=== PATIENT | female | born 1975 | race Caucasian/White ===

== ENCOUNTER 2017-04-08 07:42 | Day surgery (SDC) | payer BC ==
[~2017-04-08 07:42] MED LIST: Bupivacaine 0.25%/EPINEPHrine 1:200,000 10 ML SDV ONE
[2017-04-08] MEDS ORDERED: Lactated Ringers 1,000 ML IV SCH (08:00)
[2017-04-08] MEDS ORDERED: ceFAZolin 2 GM in Premix Bag 1 BAG IV ONE (08:00)
[2017-04-08] MEDS ORDERED: Acetaminophen/HYDROcodone 325-5 MG Tab PO PRN (08:00)
[2017-04-08] MEDS ORDERED: Bupivacaine 0.25%/EPINEPHrine 1:200,000 10 ML SDV INJECT ONE (08:00)
[2017-04-08] MEDS ORDERED: fentaNYL 100 MCG/2 ML SDV ONE (08:01)
[2017-04-08] MEDS ORDERED: Propofol 200 MG/20 ML SDV ONE (08:01)
[2017-04-08] MEDS ORDERED: Midazolam 1 MG/ML 2 ML SDV ONE (08:01)
--- NOTE | 2017-04-08 08:02 | PCM.PREANE ---
Preanesthetic Assessment - Anesthesia/Transfusion/Family Hx Anesthesia History: Prior Anesthesia Without Reaction Family History of Anesthesia Reaction: No Transfusion History: No Prior Transfusion(s) Intubation History: Unknown - Review of Systems General: No Symptoms Pulmonary: No Symptoms Cardiovascular: No Symptoms Gastrointestinal: No symptoms Neurological: No Symptoms Other: Reports: None - Physical Assessment O2 Sat by Pulse Oximetry: 98 Respiratory Rate: 16 Vital Signs: Last Vital Signs Temp 36 C 04/08/17 07:57 Pulse 70 04/08/17 07:57 Resp 16 04/08/17 07:57 BP 125/69 04/08/17 07:57 Pulse Ox 98 04/08/17 07:57 Height: 1.68 m Weight: 92.079 kg ASA Class: 2 Mental Status: Alert & Oriented x3 Airway Class: Mallampati = 2 Dentition: Reports: Normal Dentition Thyro-Mental Finger Breadths: 3 Mouth Opening Finger Breadths: 3 ROM/Head Extension: Full Lungs: Clear to auscultation, Normal respiratory effort Cardiovascular: Regular Rate, Regular Rhythm - Allergies Allergies/Adverse Reactions: Allergies Allergy/AdvReac Type Severity Reaction Status Date / Time No Known Allergies Allergy Verified 04/06/17 12:49 - Blood Blood Available: No - Anesthesia Plan Pre-Op Medication Ordered: None Beta Salomón: Metoprolol Med Last Dose Date: 04/08/17 Med Last Dose Time: 06:30 - Acknowledgements Anesthesia Type Planned: General Anesthesia Pt an Appropriate Candidate for the Planned Anesthesia: Yes Alternatives and Risks of Anesthesia Discussed w Pt/Guardian: Yes Pt/Guardian Understands and Agrees with Anesthesia Plan: Yes PreAnesthesia Questionnaire Other HEENT History: wears glasses Cardiovascular History: Reports: Hypertension Respiratory History: Reports: None Gastrointestinal History: Reports: None Genitourinary History: Reports: None 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: Polycystic Ovaries Musculoskeletal History: Reports: None Neurological History: Reports: Other (See Below) Other Neuro History: hx of motion sickness Psychiatric History: Reports: None Endocrine/Metabolic History: Reports: Obesity/BMI 30+ Hematologic History: Reports: None Oncologic (Cancer) History: Reports: None Dermatologic History: Reports: None - Past Surgical History Head Surgeries/Procedures: Reports: None HEENT Surgical History: Reports: LASIK, Oral Surgery Cardiovascular Surgical History: Reports: None Respiratory Surgical History: Reports: None GI Surgical History: Reports: Cholecystectomy Female Surgical History: Reports: None Endocrine Surgical History: Reports: None Neurological Surgical History: Reports: None Musculoskeletal Surgical History: Reports: None Oncologic Surgical History: Reports: None Dermatological Surgical History: Reports: None - SUBSTANCE USE Smoking Status *Q: Current Every Day Smoker (1/2 ppd) Tobacco Use Within Last Twelve Months: Cigarettes Recreational Drug Use History: No - HOME MEDS Home Medications: Home Meds Calcium Carbonate/Vitamin D3 [Calcium 600 + Vit D 200] 2 tab PO DAILY 04/06/17 [ History] Desog-E.Estradiol/E.Estradiol [Viorele 28 Day Tablet] 1 tab PO ASDIRECTED [History] Fish Oil/[place]-3 Fatty Acids [Fish Oil 1,000 MG] 2 gm PO DAILY 04/06/17 [History ] Krill/Om-3/DHA/EPA/Phospho/Ast [[place]-3 Krill Oil 1,000 mg] 1 cap PO DAILY 04/06 [History] Metoprolol Succinate 50 mg PO DAILY 04/06/17 [History] Multivitamin [Daily Multiple Vitamin] 1 tab PO DAILY 04/06/17 [History] - CURRENT (IN HOUSE) MEDS Current Meds: Current Medications Hydrocodone Bitart/Acetaminophen (Harrison 325-5 Mg) 1 tab PO Q4H PRN PRN Reason: Pain Bupivacaine HCl/Epinephrine Bitart (Marcaine 0.25%/Epinephrine 1:200,000) 10 ml INJECT ONETIME ONE Stop: 04/08/17 08:01 Lactated Ringer's (Ringers, Lactated) 1,000 mls @ 125 mls/hr IV ASDIRECTED [facility] Cefazolin Sodium/Dextrose 2 gm (/ Premix) 50 mls @ 100 mls/hr IV ONETIME ONE Stop: 04/08/17 08:29 Discontinued Medications Bupivacaine HCl/Epinephrine Bitart (Marcaine 0.25%/Epinephrine 1:200,000) Confirm Administered Dose 20 ml .ROUTE .STK-MED ONE Stop: 04/08/17 07:28
[2017-04-08] MEDS ORDERED: Lidocaine 2% 5 ML SDV ONE (08:05)
[2017-04-08 09:55] VITALS: BP 111/62
--- NOTE | 2017-04-08 10:12 | PCM48HPAN ---
Post Anesthesia Note - EVALUATION WITHIN 48HRS OF ANESTHETIC Vital Signs in Normal Range: Yes Patient Participated in Evaluation: Yes Respiratory Function Stable: Yes Airway Patent: Yes Cardiovascular Function Stable: Yes Hydration Status Stable: Yes Pain Control Satisfactory: Yes Nausea and Vomiting Control Satisfactory: Yes Mental Status Recovered: Yes - COMMENTS/OBSERVATIONS Free Text/Narrative:: no ,anesthesia problems
--- NOTE | 2017-04-08 12:40 | PCM.OPNOTE ---
- General Post-Op/Procedure Note Date of Surgery/Procedure: 04/08/17 Operative Procedure(s): right carpal tunnel release and right small and thumb trigger finger releases Pre Op Diagnosis: right carpal tunnel. and trigger finger of right thumb and small finger Post-Op Diagnosis: Same Anesthesia Technique: Local, MAC Primary Surgeon: Akilah Cartagena Arabic Linguist: Kaleigh Jay Complications: None Condition: Good Free Text/Narrative:: Intake & Output 04/07/17 04/08/17 04/08/17 23:59 07:59 15:59 Intake Total 800 Balance 800
--- NOTE | 2017-04-08 19:15 | OR ---
SURGEON: STEFANIA JONAS MD DATE OF PROCEDURE: 04/08/2017 PREOPERATIVE DIAGNOSES: Right carpal tunnel syndrome, trigger finger of the right thumb, and trigger finger of the small finger. POSTOPERATIVE DIAGNOSES: Right carpal tunnel syndrome, trigger finger of the right thumb, and trigger finger of the small finger. PROCEDURE: 1. Right carpal tunnel release. 2. Right small finger trigger finger release. 3. Right thumb trigger finger release. SCIENTIST IMMUNOLOGY: JENNIFER Ardon ANESTHESIA: Local MAC. INDICATIONS: Ms. Byrne is a 42-year-old female seen today for carpal tunnel syndrome on the right. She also had trigger thumb and trigger small finger. Risks and benefits of release was used in addition a carpal tunnel release were discussed and she was in agreement to proceed. Risks were including, but not limited to, bleeding, infection, damage to underlying or overlying structures, possible need for future interventions and possible scarring. PROCEDURE IN DETAIL: After informed consent was obtained and placed on the chart, the patient was brought to the operating theater and laid in the supine position. After adequate local MAC anesthetic was obtained, the area was prepped and draped in normal fashion and a time-out was completed to confirm side and site. Attention was then paid to carpal tunnel release. The arm was exsanguinated and the tourniquet was inflated to 200 mmHg. After adequate prepping and time-out, attention was then paid to dissection over the transverse carpal ligament. A 15 blade was used to dissect through the skin and subcutaneous tissues and the ligament was breached. Dissection was carried distally and proximally using a Littler scissor until complete release of the ligament under direct visualization. Once this was completed, attention was then paid to the thumb trigger release, which was done using a 15 blade through the skin and a scissor dissection until direct visualization of the A1 balta. This was passed sharply with a knife under direct visualization and the tendon was passed through range of motion to ensure complete release. Once this was completed, attention was then paid to the right small finger and a 15 blade was used to dissect through the skin and a scissor dissection until direct visualization of the A1 balta. This was transected using a 15 blade under direct visualization. Once completely released, then the tendon put through range of motion, ensured not triggering. Attention was then paid to copious irrigation of all the incisions and they were closed using a 5-0 nylon stitches in a horizontal mattress fashion. She tolerated this well. The wounds were dressed with Xeroform, fluffs, and a Kerlix gauze dressing and a 2-inch MIKE wrap. FOLLOWUP INSTRUCTIONS: The patient will see us in clinic in 10 to 14 days for suture removal or sooner if any problems, questions, or concerns. She is given a prescription for Homer. HEGGTHE / MARIAELENAL /[id number]
== END 2017-04-08 09:55 | disposition home or self-care (01) ==
LOC: MW.SDS 07:42
PROVIDERS: ATTEND Plastic Surgery
DX: G56.01 Carpal tunnel syndrome, right upper limb (principal); M65.311 Trigger thumb, right thumb; M65.351 Trigger finger, right little finger; I10 Essential (primary) hypertension; E66.9 Obesity, unspecified; Z68.30 Body mass index [BMI] 30.0-30.9, adult; Z90.49 Acquired absence of other specified parts of digestive tract; Z98.890 Other specified postprocedural states; F17.210 Nicotine dependence, cigarettes, uncomplicated; Z79.899 Other long term (current) drug therapy
CPT/HCPCS: 26055; 64721; 81025; J2250; J3010; J7120; 01810; J2704

== ENCOUNTER 2021-05-26 06:45 | Day surgery (SDC) | payer BC ==
[~2021-05-26 06:45] MED LIST changes: -Bupivacaine 0.25%/EPINEPHrine 1:200,000 10 ML SDV ONE; +Lactated Ringers 1,000 ML IV SCH; +Sodium Chloride 0.9% 10 ML SDV IV PRN; +Sodium Chloride 0.9% 10 ML Syringe FLUSH PRN; +Sodium Chloride 0.9% 2.5 ML Syringe FLUSH PRN
[2021-05-26] MEDS ORDERED: Lidocaine 2% 5 ML SDV ONE (07:01)
[2021-05-26] MEDS ORDERED: Ondansetron 4 MG/2 ML SDV ONE (07:01)
[2021-05-26] MEDS ORDERED: propofoL 50 ML ONE (07:14)
--- NOTE | 2021-05-26 08:13 | PCM.PREANE ---
Preanesthetic Assessment - Anesthesia/Transfusion/Family Hx Anesthesia History: Prior Anesthesia Without Reaction Transfusion History: No Prior Transfusion(s) Intubation History: Unknown - Review of Systems General: No Symptoms Pulmonary: No Symptoms Cardiovascular: No Symptoms Gastrointestinal: No Symptoms Neurological: No Symptoms Other: Reports: None - Physical Assessment NPO Status Date: 05/26/21 NPO Status Time: 00:00 Vital Signs: Last Vital Signs Temp 97.5 F 05/26/21 07:26 Pulse 92 05/26/21 07:26 Resp 15 05/26/21 07:26 BP 121/70 05/26/21 07:26 Pulse Ox 97 05/26/21 07:26 Height: 5 ft 6 in Weight: 232 lb ASA Class: 2 Mental Status: Alert & Oriented x3 Airway Class: Mallampati = 2 Dentition: Reports: Normal Dentition ROM/Head Extension: Full Lungs: Clear to Auscultation, Normal Respiratory Effort Cardiovascular: Regular Rate, Regular Rhythm - Lab Values: Laboratory Last Values Urine HCG, Qual NEGATIVE (NEGATIVE) 05/26/21 07:08 - Allergies Allergies/Adverse Reactions: Allergies Allergy/AdvReac Type Severity Reaction Status Date / Time No Known Allergies Allergy Verified 05/21/21 12:42 - Acknowledgements Anesthesia Type Planned: General Anesthesia Pt an Appropriate Candidate for the Planned Anesthesia: Yes Alternatives and Risks of Anesthesia Discussed w Pt/Guardian: Yes Pt/Guardian Understands and Agrees with Anesthesia Plan: Yes PreAnesthesia Questionnaire HEENT History: Reports: Other (See Below) Other HEENT History: wears glasses Cardiovascular History: Reports: Hypertension Respiratory History: Reports: None Gastrointestinal History: Reports: GERD Genitourinary History: Reports: None 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 Musculoskeletal History: Reports: None Neurological History: Reports: None Other Neuro History: hx of motion sickness Psychiatric History: Reports: Anxiety Other Psychiatric History: has taken medication in the past for anxiety- not currently but has an upcoming appointment for this Endocrine/Metabolic History: Reports: Obesity/BMI 30+ Hematologic History: Reports: None Immunologic History: Reports: None Oncologic (Cancer) History: Reports: None Dermatologic History: Reports: None - Past Surgical History Head Surgeries/Procedures: Reports: None HEENT Surgical History: Reports: LASIK Cardiovascular Surgical History: Reports: None Respiratory Surgical History: Reports: None GI Surgical History: Reports: Cholecystectomy Female Surgical History: Reports: None Endocrine Surgical History: Reports: None Neurological Surgical History: Reports: None Musculoskeletal Surgical History: Reports: Carpal Tunnel, Other (See Below) Other Musculoskeletal Surgeries/Procedures:: trigger finger release- right hand Oncologic Surgical History: Reports: None Dermatological Surgical History: Reports: None - SUBSTANCE USE Tobacco Use Status *Q: Former Tobacco User Tobacco Use Within Last Twelve Months: No Recreational Drug Use History: No - HOME MEDS Home Medications: Home Meds Calcium Carbonate/Vitamin D3 [Calcium 600 + Vit D 200] 1 tab PO DAILY 04/06/17 [History] Krill/Om-3/DHA/EPA/Phospho/Ast [[place]-3 Krill Oil 1,000 mg] 1 cap PO DAILY 04/06/17 [History] Metoprolol Succinate 50 mg PO QAM 04/06/17 [History] Multivitamin [Daily Multiple Vitamin] 1 tab PO DAILY 04/06/17 [History] desog-e.estradioL/e.estradioL [Viorele 28 Day Tablet] 1 tab PO ASDIRECTED 04/06/17 [History] Diclofenac Sodium 50 mg PO BID PRN 05/22/21 [History] Omeprazole 20 mg PO QAM 05/22/21 [History] - CURRENT (IN HOUSE) MEDS Current Meds: Current Medications Lactated Ringer's (Ringers, Lactated) 1,000 mls @ 125 mls/hr IV ASDIRECTED MAEGAN Last Admin: 05/26/21 08:00 Dose: 125 mls/hr Documented by: Sodium Chloride (Sodium Chloride 0.9% 10 Ml Syringe) 10 ml FLUSH ASDIRECTED PRN PRN Reason: Keep Vein Open Sodium Chloride (Sodium Chloride 0.9% 2.5 Ml Syringe) 2.5 ml FLUSH ASDIRECTED PRN PRN Reason: Keep Vein Open Sodium Chloride (Sodium Chloride 0.9% 10 Ml Syringe) 10 ml FLUSH ASDIRECTED PRN PRN Reason: Keep Vein Open Sodium Chloride (Sodium Chloride 0.9% 2.5 Ml Syringe) 2.5 ml FLUSH ASDIRECTED PRN PRN Reason: Keep Vein Open Sodium Chloride (Sodium Chloride 0.9% 10 Ml Sdv) 10 ml IV ASDIRECTED PRN PRN Reason: IV Use Discontinued Medications Propofol (Diprivan 50 Ml) Confirm Administered Dose 50 mls @ as directed .ROUTE .STK-MED ONE Stop: 05/26/21 07:15 Lidocaine (Lidocaine 2% 5 Ml Sdv) Confirm Administered Dose 5 ml .ROUTE .STK-MED ONE Stop: 05/26/21 07:02 Ondansetron HCl (Ondansetron 4 Mg/2 Ml Sdv) Confirm Administered Dose 4 mg .ROUTE .for; to (do) Centers-MED ONE Stop: 05/26/21 07:02
--- NOTE | 2021-05-26 09:12 | PCM.OPNOTE ---
- General Post-Op/Procedure Note Date of Surgery/Procedure: 05/26/21 Operative Procedure(s): Screening colonoscopy and polypectomy Findings: 2 transverse colon polyps, 2 rectal, 6 sigmoid polyps (largest polyp sigmoid colon polyp #2 @ 30 cm) Pre Op Diagnosis: Family history of colon polyps Post-Op Diagnosis: Transverse colon polyp x 2, rectal polyp x 2, sigmoid colon polyp X6 Anesthesia Technique: MAC Primary Surgeon: Bhavna Ca Condition: Good
[2021-05-26 10:08] VITALS: BP 113/65; PULSE 68
--- NOTE | 2021-05-26 16:38 | OR ---
SURGEON: BHAVNA CA MD DATE OF PROCEDURE: 05/26/2021 PREOPERATIVE DIAGNOSIS: Family history of colon cancer. POSTOPERATIVE DIAGNOSES: 1. Rectal polyp x2. 2. Transverse colon polyp x2. 3. Sigmoid colon polyps x6. PROCEDURE PERFORMED: Screening colonoscopy with polypectomy. PRIMARY SURGEON: Bhavna Ca MD. ANESTHESIA: MAC. INSTRUMENT USED: Olympus colonoscope. EXTENT OF EXAM: To the cecum. PREPARATION: Good. LIMITATIONS: None. INDICATIONS FOR EXAMINATION: The patient is a 46-year-old female who presents for screening colonoscopy. Her mother was diagnosed with colon cancer in her 60s. The patient and I discussed the need for a screening colonoscopy. I explained the procedure, expected perioperative course, and the risks. She verbalized understanding and wishes to proceed. PROCEDURE IN DETAIL: The patient was brought to the endoscopy suite and placed in a left lateral decubitus position. A time-out was completed verifying the patient's name, age, date of , allergies, and procedure to be performed. Monitored anesthesia care was induced and continuous oxygen was provided via nasal cannula throughout the procedure. After adequate sedation was achieved, a digital rectal exam was performed. The patient had some mildly enlarged hemorrhoids. The exam was otherwise normal. A well-lubricated colonoscope was inserted in the rectum and advanced under direct visualization to the level of the cecum. The cecum was identified by both visual and anatomic landmarks. A photograph was taken of cecal cap as well as with the scope retroflexed within the cecum. The scope was then fully withdrawn while examining the color, texture, anatomy, and integrity of mucosa from the cecum to the anal canal. The patient was found to have multiple polyps throughout her colon. There were 2 sessile polyps within the transverse colon. These were both removed in piecemeal fashion using a cold biopsy forceps. The patient had multiple polyps in the sigmoid colon. The largest of these was a sigmoid colon polyp #2 and this was located at 30 cm. The polyp was removed using a hot snare. Otherwise, the remainder of the polyps were removed using a cold biopsy forceps. In the transverse colon, the patient was noted to have 2 sessile polyps as well. These were removed in piecemeal fashion using a cold biopsy forceps. The scope was then retroflexed within the rectum to allow visualization of the anal canal opening. This appeared normal and a photograph was taken. The scope was then straightened out and fully withdrawn. The cecum to anus time was 32 minutes. The patient tolerated the procedure well and was transferred to the PACU in stable condition. ENDOSCOPIC DIAGNOSES: 1. Rectal polyp x2. 2. Transverse colon polyp x2. 3. Sigmoid colon polyps x6. RECOMMENDATIONS: Follow up in clinic in 2 weeks. ALEM ZACARIAS /[id number]
== END 2021-05-26 09:42 | disposition home or self-care (01) ==
LOC: MW.SDS 06:45
PROVIDERS: ATTEND Surgery
DX: Z12.11 Encounter for screening for malignant neoplasm of colon (principal); K63.5 Polyp of colon; K62.1 Rectal polyp; K64.8 Other hemorrhoids; Z80.0 Family history of malignant neoplasm of digestive organs; I10 Essential (primary) hypertension; Z79.899 Other long term (current) drug therapy; Z87.891 Personal history of nicotine dependence
CPT/HCPCS: 45380; 45385; 81025; J2405; J2704; J7120; 00812; 88305